=== PATIENT | female | born 1970 | race African-American/Black ===

== ENCOUNTER → 2016-06-17 | Outpatient (CLI) | payer OTHER ==
[~2016-06-17] MED LIST: CEPH-571 PO; CINN500T PO; DFL150 PO; METR500T PO; MULT-506 PO; OMEP40CA PO
--- NOTE | 2016-06-17 13:59 | MAMMOGRAPHY REPORT ---
BILATERAL DIGITAL DIAGNOSTIC MAMMOGRAM TOMOSYNTHESIS WITH CAD AND TARGETED RIGHT ULTRASOUND: 06/17/19 17 CLINICAL HISTORY: The patient reports nonfocal pain in her right outer breast last week, which has n ow resolved. No associated lump felt in this region by the patient. The patient does report an int ermittent lump in the right superior breast. TECHNIQUE: Breast tomosynthesis in addition to standard 2D mammography was performed. Current study was also evaluated with a Computer Aided Detection (CAD) system. Bilateral CC and MLO 2-D and jono synthesis images were obtained. COMPARISON: Comparison is made to exams dated: 11/14/2014 ultrasound, 11/14/2014 mammogram, 4 ultrasound, 05/29/2014 mammogram, 10/26/2013 mammogram, and 10/10/2012 mammogram - [facility]. BREAST COMPOSITION: There are scattered areas of fibroglandular density in both breasts. FINDINGS: There are no suspicious masses, calcifications, or areas of architectural distortion note d in either breast mammographically. There has been no significant interval change compared to prio r exams. Targeted ultrasound was performed of the area of the intermittent lump pointed out by the patient, i n the right breast at 12:00, approximately 20 cm from the nipple. Sonographically normal tissue is seen, without evidence of a mass or other suspicious sonographic abnormality. IMPRESSION: ACR BI-RADS CATEGORY 2: BENIGN, TARGETED ULTRASOUND ACR BI-RADS CATEGORY 2: BENIGN No suspicious abnormality in the right breast at the sites of right breast pain and intermittent rig ht breast lump. There is no mammographic or targeted sonographic evidence of malignancy. Recommend clinical follow-up for right breast pain and intermittent lump, and recommend routine bilateral scr eening mammograms in one year. The patient has been verbally notified of the results. Approximately 10% of breast cancers are not detected with mammography. A negative mammographic repor t should not delay biopsy if a clinically suggestive mass is present. Maxine Leija M.D. ah/:06/17/2016 10:32:44 Hall Worker: Jaki ROWLEY(Coleen)(Joselo), [facility] letter sent: Normal 06/08 BI-RADS Code: ACR BI-RADS Category 2: Benign Ultrasound BI-RADS: ACR BI-RADS Category 2: Benign
== END | disposition home or self-care (01) ==
LOC: C.MAMM 09:27
PROVIDERS: ATTEND Internal Medicine Geriatric Medicine
DX: N64.4 Mastodynia (principal); N63 Unspecified lump in breast

== ENCOUNTER → 2016-07-20 | Outpatient (CLI) | payer OTHER | END | disposition home or self-care (01) | LOC: C.PAPS 09:58 | PROVIDERS: ATTEND Obstetrics & Gynecology | DX: Z01.419 Encounter for gynecological examination (general) (routine) without abnormal findings (principal) ==

== ENCOUNTER → 2016-07-20 | Outpatient (CLI) | payer OTHER | END | disposition home or self-care (01) | LOC: C.LAB1850 13:43 | PROVIDERS: ATTEND Obstetrics & Gynecology | DX: Z20.2 Contact with and (suspected) exposure to infections with a predominantly sexual mode of transmission (principal) ==

== ENCOUNTER → 2016-07-20 | Outpatient (CLI) | payer OTHER ==
[2016-07-24 00:15] LABS: CHLAMYDIA TRACH RNA*** NOT DETECTED (NOT DETECTED); GC (NEIS GONORRHOEAE)RNA** NOT DETECTED (NOT DETECTED); TRICHOMONAS VAGINALIS RNA** NOT DETECTED (NOT DETECTED)
== END | disposition home or self-care (01) ==
LOC: C.LABSPEC 16:12
PROVIDERS: ATTEND Obstetrics & Gynecology
DX: Z20.2 Contact with and (suspected) exposure to infections with a predominantly sexual mode of transmission (principal)

== ENCOUNTER → 2016-08-14 | Outpatient (CLI) | payer OTHER | END | disposition home or self-care (01) | LOC: C.LABSPEC 13:15 | PROVIDERS: ATTEND Obstetrics & Gynecology | DX: B37.3 Candidiasis of vulva and vagina (principal) ==

== ENCOUNTER → 2016-09-23 | Outpatient (CLI) | payer OTHER ==
--- NOTE | 2016-09-23 10:24 | DIAGNOSTIC IMAGING REPORT ---
RIGHT KNEE 2 VIEWS CLINICAL HISTORY: Right knee pain. FINDINGS: AP and lateral views of the right knee are compared to study dated 08/31/2011. The skeletal structures are well mineralized. No fracture is seen. Mild narrowing is seen at the patellofemoral articulation. There is minimal degenerative beaking of the tibial spine, as well as tiny patellar enthesophytes. No joint effusion is identified. The overlying soft tissues are within normal limits. Superficial venous varicosities are incidentally noted around the knee. IMPRESSION: Minimal degenerative change as above. No acute bony abnormality is seen. Electronically signed by: Justus Saunders M.D. 09/23/2016 10:22 AM Dictated Date/Time: 09/23/2016 10:21 AM
--- NOTE | 2016-09-23 10:29 | DIAGNOSTIC IMAGING REPORT ---
LEFT KNEE 2 VIEWS HISTORY: M25.561 Knee pain, bilateral COMPARISON: None. FINDINGS: There is no fracture or dislocation. Superficial varicosities are noted. No significant knee effusion. Tiny marginal osteophytes. Subchondral sclerosis and cystic change at the patella consistent with degenerative change. IMPRESSION: Minimal degenerative changes as above. No acute bony abnormality. Electronically signed by: Neil Amador M.D. 09/23/2016 10:27 AM Dictated Date/Time: 09/23/2016 10:26 AM
== END | disposition home or self-care (01) ==
LOC: C.RADBC 09:56
PROVIDERS: ATTEND Family Medicine
DX: M25.561 Pain in right knee (principal); M25.562 Pain in left knee

== ENCOUNTER → 2016-10-21 | Outpatient (CLI) | payer OTHER | END | disposition home or self-care (01) | LOC: C.LABSPEC 15:09 | PROVIDERS: ATTEND Obstetrics & Gynecology | DX: N89.8 Other specified noninflammatory disorders of vagina (principal) ==

== ENCOUNTER 2016-12-06 12:32 | Emergency (ER) | payer OTHER ==
[~2016-12-06] VITALS: Ht 160 cm; Wt 120.0 kg
[~2016-12-06 12:32] MED LIST changes: -CEPH-571 PO; -CINN500T PO; -DFL150 PO; -METR500T PO; -MULT-506 PO
[2016-12-06 12:33] VITALS: TEMP 36.8; Ht 160 cm; Wt 120.0 kg
[2016-12-06 13:45] LABS: URINE APPEARANCE TURBID (CLEAR); URINE EPITHELIAL CELL AUTO >30 /lpf (0-5); URINE NITRITE NEG (NEG); URINE SPECIFIC GRAVITY 1.032 (1.000-1.030); UROBILINOGEN NEG (NEG); ZZUR CULT IF INDIC CLEAN CATCH YES
[2016-12-06 13:49] LABS: MANUAL MICROSCOPIC REQUIRED? NO; REVIEW REQ? YES; URINE BILIRUBIN 1+ (NEG); URINE COLOR AMBER
[2016-12-06] MEDS ORDERED: DFL150 PO (14:26)
[2016-12-06] MEDS ORDERED: MULT-506 PO (14:26)
[2016-12-06] MEDS ORDERED: CINN500T PO (14:26)
[2016-12-06] MEDS ORDERED: CEFTRIAXONE SOD 350MG/ML 1 GM VIAL IM STA (14:41)
[2016-12-06] MEDS ORDERED: AZITHROMYCIN 250 MG TAB PO ONE (14:45)
[2016-12-06] MEDS ORDERED: FLUCONAZOLE 50 MG TAB PO ONE (14:45)
--- NOTE | 2016-12-06 14:52 | EMERGENCY ROOM VISIT NOTE ---
History Report prepared by Reza: Alexandro Guillermo Under the Supervision of: Dr. Nelly Reid D.O. First contact with patient: 12:48 Chief Complaint: ABDOMINAL PAIN Stated Complaint: STOMACH PAIN Nursing Triage Summary: pt to the ED with c/o lower pelvic pain and dc was treated for yeast infection History of Present Illness The patient is a 46 year old female who presents to the Emergency Room with complaints of persistent vaginal itching beginning a few days ago. She states that she began treating herself for a yeast infection three days ago. She states that her yeast infection appears to have improved. The patient notes that she was recently on an antibiotic for an ingrown fingernail. She finished the antibiotic treatment this week and is now on Diflucan. She has a history of yeast infections with taking antibiotics. The patient also complains of lower abdominal pain. She denies any nausea, vomiting, chills, fevers, or diarrhea. She states that she has had some back pain, but has back pain occasionally and is unsure if it is related to her symptoms. The patient notes that she had unprotected intercourse with her boyfriend recently. She has no history of STI's , and does not believe that her partner has a history either. She denies any abnormal pain with intercourse. The patient has a history of a hysterectomy. She states that she began using [employer] Alanna wash last month, but otherwise denies any recent changes to her hygienic products. Source of History: patient Onset: A few days ago Position: other (vagina) Quality: other (itching) Timing: other (Persistent) Associated Symptoms: + abdominal pain (lower), No fevers, No nausea, No vomiting, No diarrhea Review of Systems See HPI for pertinent positives & negatives. A total of 10 systems reviewed and were otherwise negative. Past Medical & Surgical Medical Problems: (1) Dysmenorrhea (2) Fibroids (3) Morbid obesity Family History No pertinent family history stated. Social History Smoking Status: Former Smoker Occupation Status: employed Current/Historical Medications Scheduled Cephalexin (Keflex), 1 CAP PO BID Cinnamon (Cinnamon), 1 TAB PO DAILY Fluconazole (Fluconazole), 150 MG PO UD Metronidazole (Flagyl), 500 MG PO BID Multivitamin (Multivitamin), 1 TAB PO DAILY Allergies Coded Allergies: No Known Allergies (Verified , 09/18/15) Physical Exam Vital Signs Date Time Temp Pulse Resp B/P (MAP) Pulse Ox O2 Delivery O2 Flow Rate FiO2 12/06/16 15:10 64 18 138/91 100 Room Air 12/06/16 12:33 36.8 68 16 121/77 100 Physical Exam GENERAL: alert, well appearing, well nourished, no distress, non-toxic EYE EXAM: normal conjunctiva, PERRL and EOM's grossly intact OROPHARYNX: no exudate, no erythema, lips, buccal mucosa, and tongue normal and mucous membranes are moist NECK: supple, no nuchal rigidity, no adenopathy, non-tender LUNGS: Clear to auscultation. Normal chest wall mechanics HEART: no murmurs, S1 normal and S2 normal ABDOMEN: abdomen soft, non-tender, normo-active bowel sounds, no masses, no rebound or guarding. BACK: Back is symmetrical on inspection and there is no deformity, no midline tenderness, no CVA tenderness. : Normal external genitalia. No vesicles or lesions. No inguinal lymphadenopathy. Normal vaginal vault with a small amount of white discharge. Normal cervix. No signs of cervicitis. No CMT. Mild right adnexal tenderness. SKIN: no rashes and no bruising UPPER EXTREMITIES: upper extremities are grossly normal. LOWER EXTREMITIES: No pitting edema. NEURO EXAM: Normal sensorium, cranial nerves II-XII grossly intact, normal speech, no gross weakness of arms, no gross weakness of legs. Medical Decision & Procedures Laboratory Results Test 12/06/16 13:10 12/06/16 13:30 Urine Color ESTEVAN Urine Appearance TURBID (CLEAR) Urine pH 5.0 (4.5-7.5) Urine Specific [place] 1.032 (1.000-1.030) Urine Protein TRACE (NEG) Urine Glucose (UA) NEG (NEG) Urine Ketones TRACE (NEG) Urine Occult Blood TRACE (NEG) Urine Nitrite NEG (NEG) Urine Bilirubin 1+ (NEG) Urine Urobilinogen NEG (NEG) Urine Leukocyte Esterase TRACE (NEG) Urine WBC (Auto) 5-10 /hpf (0-5) Urine RBC (Auto) 0-4 /hpf (0-4) Urine Hyaline Casts (Auto) 1-5 /lpf (0-5) Urine Epithelial Cells (Auto) >30 /lpf (0-5) Urine Bacteria (Auto) 2+ (NEG) Urine Pathogenic Casts /lpf (0) Urine Yeast (Auto) (NONE PRSENT) Laboratory results per my review. Medications Administered Medications (Trade) Dose Ordered Sig/Hoda Route Start Time Stop Time Status Last Admin Dose Admin Ceftriaxone Sodium (Rocephin Im) 250 mg NOW STAT IM 12/06/16 14:41 12/06/16 14:43 DC 12/06/16 15:01 250 MG Azithromycin (Zithromax Tab) 1,000 mg NOW ONCE PO 12/06/16 14:45 12/06/16 14:46 DC 12/06/16 15:02 1,000 MG Fluconazole (Diflucan Tab) 150 mg NOW ONCE PO 12/06/16 14:45 12/06/16 14:46 DC 12/06/16 15:01 150 MG ED Course 1258: The patient was evaluated in room C4. A complete history and physical exam was performed. 1441: Ordered Rocephin 250 mg IM. 1437: Upon reevaluation, the patient is feeling better. I discussed the findings and the treatment plan with the patient. She verbalizes agreement and understanding. 1445: Ordered Diflucan Tab 150 mg PO, Zithromax Tab 1000 mg PO. The patient was discharged home. Medical Decision Differential diagnosis: Gonorrhea, chlamydia, yeast infection, BV, TOA, PID, UTI, as well as other etiologies were considered. Patient concerned about possible exposure to STD, as well as recent UTI symptoms. Swabs obtained during pelvic exam which patient tolerated well, low suspicion for ovarian cysts, TOA, PID, torsion. Symptoms are presentation not consistent with pyelonephritis, doubt bacteremia/sepsis, doubt other GI origin of patient's discomfort. Patient covered empirically at her request for GC and chlamydia, also discussed treatment of her urinary tract infection, as well as possible BV. Patient otherwise well-appearing, discussed follow-up with GENERAL OPHTHALMOLOGIST , symptoms to watch and return for, she verbalized understanding was agreeable with plan. Impression Primary Impression: Vaginal discharge Additional Impression: UTI (urinary tract infection) Scribe Attestation The scribe's documentation has been prepared under my direction and personally reviewed by me in its entirety. I confirm that the note above accurately reflects all work, treatment, procedures, and medical decision making performed by me. Departure Information Dispostion Home / Self-Care Prescriptions Metronidazole (FLAGYL) 500 Mg Tab 500 MG PO BID, #14 TAB Prov: Nelly Reid, DO 12/06/16 Cephalexin (KEFLEX) 500 Mg Cap 1 CAP PO BID for 7 Days, #14 CAP Prov: Nelly Reid, DO 12/06/16 Patient Instructions My [facility] Additional Instructions Please follow up with your family doctor or preferably your GENERAL OPHTHALMOLOGIST. Please take the antibiotics as prescribed. If the cultures are positive you'll receive a phone call in 48-72 hours. If you develop any increasing pain, worsening discharge, noticed blood in your urine, have vaginal bleeding, abdominal pain or back pain, fevers or chills, or you have any other new or concerning symptoms, please return the emergency room. Problem Qualifiers Additional Impression: UTI (urinary tract infection) Urinary tract infection type: acute cystitis Hematuria presence: without hematuria Qualified Codes: N30.00 - Acute cystitis without hematuria
[2016-12-06] MEDS ORDERED: CEPH-571 PO (14:53)
[2016-12-06] MEDS ORDERED: METR500T PO (14:54)
[2016-12-06 15:10] VITALS: BP 138/91; PULSE 64; O2SAT 100
[2016-12-09 21:32] LABS: CHLAMYDIA TRACH RNA*** NOT DETECTED (NOT DETECTED); GC (NEIS GONORRHOEAE)RNA** NOT DETECTED (NOT DETECTED)
== END 2016-12-06 15:12 | disposition home or self-care (01) ==
LOC: C.EDB 12:33 → C.EDC 15:12
DX: N89.8 Other specified noninflammatory disorders of vagina (principal); N39.0 Urinary tract infection, site not specified; Z87.42 Personal history of other diseases of the female genital tract; Z90.710 Acquired absence of both cervix and uterus; Z87.891 Personal history of nicotine dependence; Z79.899 Other long term (current) drug therapy

== ENCOUNTER → 2017-03-04 | Outpatient (CLI) | payer OTHER ==
[~2017-03-04] MED LIST changes: +CINN500T PO; +DFL150 PO; +MULT-506 PO; -OMEP40CA PO
[2017-03-04 10:37] LABS: URINE APPEARANCE CLEAR (CLEAR); URINE BILIRUBIN NEG (NEG); URINE COLOR YELLOW; URINE NITRITE NEG (NEG); URINE PH 6.5 (4.5-7.5); URINE SPECIFIC GRAVITY 1.018 (1.000-1.030); UROBILINOGEN NEG (NEG)
[2017-03-04 10:41] LABS: MANUAL MICROSCOPIC REQUIRED? NO; REVIEW REQ? NO
== END | disposition home or self-care (01) ==
LOC: C.LAB1850 09:55
PROVIDERS: ATTEND Physician Assistant
DX: R10.2 Pelvic and perineal pain (principal)

== ENCOUNTER → 2017-06-08 | Outpatient (CLI) | payer OTHER ==
[~2017-06-08] MED LIST changes: +AMOX1TAB42 PO; +HYDR-5688 PO; +LACTCAP3 PO; +MISCCAP80 PO; +ONDA8TAB62 SL; +PRLSR20 PO; +VITA400C28 PO
== END | disposition home or self-care (01) ==
LOC: C.LABSPEC 17:17
PROVIDERS: ATTEND Physician Assistant
DX: N89.8 Other specified noninflammatory disorders of vagina (principal); R10.2 Pelvic and perineal pain

== ENCOUNTER → 2017-06-09 | Outpatient (CLI) | payer OTHER ==
--- NOTE | 2017-06-09 10:19 | DIAGNOSTIC IMAGING REPORT ---
KUB CLINICAL HISTORY: R10.30 Abdominal pain, [id number] pain. Nephrocalcinosis. COMPARISON STUDY: 02/21/2013 FINDINGS: The soft tissues, psoas shadows, renal outlines and intestinal gas pattern appear normal. There is no evidence for bowel obstruction. No abnormal abdominal calcifications are seen. IMPRESSION: Normal study. The above report was generated using voice recognition software. It may contain grammatical, syntax or spelling errors. Electronically signed by: Girish Coker M.D. 06/09/2017 10:18 AM Dictated Date/Time: 06/09/2017 10:17 AM
== END | disposition home or self-care (01) ==
LOC: C.RADBC 10:00
PROVIDERS: ATTEND Nurse Practitioner Adult Health
DX: R10.30 Lower abdominal pain, unspecified (principal)

== ENCOUNTER → 2017-06-16 | Outpatient (CLI) | payer OTHER ==
[~2017-06-16] MED LIST changes: -AMOX1TAB42 PO; -HYDR-5688 PO; -LACTCAP3 PO; -MISCCAP80 PO; -ONDA8TAB62 SL; -PRLSR20 PO; -VITA400C28 PO
== END | disposition home or self-care (01) ==
LOC: C.LAB1850 09:50
PROVIDERS: ATTEND Nurse Practitioner Adult Health
DX: Z00.00 Encounter for general adult medical examination without abnormal findings (principal)

== ENCOUNTER → 2017-06-16 | Outpatient (CLI) | payer OTHER ==
--- NOTE | 2017-06-16 15:31 | MAMMOGRAPHY REPORT ---
BILATERAL DIGITAL DIAGNOSTIC MAMMOGRAM TOMOSYNTHESIS WITH CAD AND TARGETED BILATERAL ULTRASOUND: 06/16 CLINICAL HISTORY: Patient reports chronic nonfocal breast soreness and tenderness, that became worse approximately 2-3 weeks ago but now has subsided a bit. The patient reports her nipples are still te nder. Patient also reports a lump in the 12:00 far superior right breast. No skin erythema or nippl e discharge. TECHNIQUE: Bilateral breast tomosynthesis in addition to standard 2D mammography was performed. Curre nt study was also evaluated with a Computer Aided Detection (CAD) system. COMPARISON: Comparison is made to exams dated: 06/17/2016 ultrasound, 06/17/2016 mammogram, 11/14/2014 mammogram, 05/29/2014 mammogram, 10/26/2013 mammogram, and 10/10/2012 mammogram - [facility]. BREAST COMPOSITION: There are scattered areas of fibroglandular density in both breasts. FINDINGS: No suspicious mass, architectural distortion, developing asymmetry or cluster of microcalc ifications is seen in the breasts. Targeted ultrasound was performed in the periareolar and retroareolar aspect of each breast, given th e persistent nipple soreness. Sonographically normal tissue is seen without a discrete solid or cyst ic mass. No focal intraductal mass or focal skin thickening is appreciated. No drainable fluid justice ection. Additional targeted ultrasound was performed in the 12:00 right breast approximately 15 cm f rom the nipple in the area of lump pointed out by the patient. Sonographically normal tissue is seen without a suspicious solid or cystic mass. IMPRESSION: ACR BI-RADS CATEGORY 2: BENIGN, TARGETED ULTRASOUND ACR BI-RADS CATEGORY 2: BENIGN 1. No new suspicious mammographic or targeted sonographic abnormality to explain bilateral nonfocal mastalgia and bilateral nipple soreness. Therefore, continued clinical follow-up is recommended. 2. No suspicious mammographic or sonographic abnormality in the 12:00 right breast approximately 15 cm from the nipple in the area of lump pointed out by the patient. Clinical follow-up is therefore r ecommended, as biopsy of a clinically suspicious mass should not be precluded by negative imaging. Recommend routine screening tomosynthesis mammography in one year, unless there are any new areas of concern. These results and recommendations were discussed with the patient at the time of the exam. Approximately 10% of breast cancers are not detected with mammography. A negative mammographic report should not delay biopsy if a clinically suggestive mass is present. Celia Ross M.D. ay/:06/16/2017 10:53:40 Sourcing Coordinator: Frieda ROWLEY(R)(M), [facility] letter sent: Normal 1/2 BI-RADS Code: ACR BI-RADS Category 2: Benign Ultrasound BI-RADS: ACR BI-RADS Category 2: Benign
== END | disposition home or self-care (01) ==
LOC: C.MAMM 08:56
PROVIDERS: ATTEND Nurse Practitioner Adult Health
DX: N64.4 Mastodynia (principal)

== ENCOUNTER → 2017-08-03 | Outpatient (CLI) | payer OTHER | END | disposition home or self-care (01) | LOC: C.LAB1850 12:57 | PROVIDERS: ATTEND Obstetrics & Gynecology | DX: Z01.419 Encounter for gynecological examination (general) (routine) without abnormal findings (principal); Z20.2 Contact with and (suspected) exposure to infections with a predominantly sexual mode of transmission ==

== ENCOUNTER 2017-09-10 04:44 | Emergency (ER) | payer OTHER ==
[~2017-09-10] VITALS: Ht 160 cm; Wt 124.8 kg
[2017-09-10 04:50] VITALS: Ht 160 cm; Wt 124.8 kg
--- NOTE | 2017-09-10 05:15 | EMERGENCY ROOM VISIT NOTE ---
History Report prepared by Reza: Manuel Beatty Under the Supervision of: Dr. Nelly Reid D.O. First contact with patient: 04:58 Chief Complaint: CHEST PAIN Stated Complaint: PAIN IN CHEST History of Present Illness The patient is a 47 year old female who presents to the Emergency Room with complaints of constant chest pain since 0200 this morning. She states that she felt fine yesterday. She states that she woke up to get ready for work and then developed sharp chest pain. She notes the pain is worsened with right arm movement, but denies any pain radiating to her neck, back, or arms. She has a history of acid reflux, though denies any similar symptoms. She regularly takes Omezoprale. She notes that deep breaths slightly worsen the pain. She denies any dizziness, lightheadedness, shortness of breath, fevers, or chills. She notes that she lifts 50 pound boxes every day. She denies any changes to her daily activities. She notes that she has not been eating meat for the last four days. She has a family history of CAD. She notes her sister had an MD in her early 40s. She denies any cardiac problems. She denies any diarrhea or leg swelling. She reports recent travels [facility] a [facility] the past weekend. She denies any history of smoking. She has a history of sleep apnea. She reports taking daily vitamins. Source of History: patient Onset: since 0200 this morning Position: chest Quality: sharp Timing: constant Associated Symptoms: No fevers, No chills, No neck pain, No SOB, No back pain, No diarrhea Note: She denies any pain in her UE. She denies any dizziness, lightheadedness, or leg swelling. Review of Systems See HPI for pertinent positives & negatives. A total of 10 systems reviewed and were otherwise negative. Past Medical & Surgical Medical Problems: (1) Dysmenorrhea (2) Fibroids (3) Morbid obesity Family History Heart disease Social History Smoking Status: Never Smoker Smokeless Tobacco Use: No Occupation Status: employed Current/Historical Medications Scheduled Lactobacillus (Acidophilus), 1 CAP PO QAM Multivitamin (Multivitamin), 1 TAB PO DAILY Omeprazole (Prilosec), 20 MG PO BID Allergies Uncoded Allergies: POWDER IN LATEX GLOVES (Allergy, Mild, ITCHING, 09/10/17) Physical Exam Vital Signs Date Time Temp Pulse Resp B/P (MAP) Pulse Ox O2 Delivery O2 Flow Rate FiO2 09/10/17 09:10 64 16 118/69 97 09/10/17 08:45 62 09/10/17 08:36 36.7 72 16 113/77 98 Room Air 09/10/17 07:12 69 14 113/77 98 Room Air 09/10/17 06:15 72 20 127/94 96 Room Air 09/10/17 05:09 82 09/10/17 04:59 97 Room Air 09/10/17 04:50 36.7 67 20 139/87 97 Room Air Physical Exam GENERAL: alert, well appearing, well nourished, no distress, non-toxic EYE EXAM: normal conjunctiva, PERRL and EOM's grossly intact OROPHARYNX: no exudate, no erythema, lips, buccal mucosa, and tongue normal and mucous membranes are moist NECK: supple, no nuchal rigidity, no adenopathy, non-tender LUNGS: Clear to auscultation. Normal chest wall mechanics HEART: no murmurs, S1 normal and S2 normal CHEST: Slight reproducible chest pain along the right sternal border. ABDOMEN: abdomen soft, non-tender, normo-active bowel sounds, no masses, no rebound or guarding. BACK: Back is symmetrical on inspection and there is no deformity, no midline tenderness, no CVA tenderness. SKIN: no rashes and no bruising UPPER EXTREMITIES: upper extremities are grossly normal. LOWER EXTREMITIES: No pitting edema. NEURO EXAM: Normal sensorium, cranial nerves II-XII grossly intact, normal speech, no gross weakness of arms, no gross weakness of legs. Medical Decision & Procedures ER Provider Diagnostic Interpretation: X-ray: I interpreted the following studies. Chest: A two view study of the chest was reviewed and showed mild cardiomegaly, generous mediastinum, and poor inspiratory effort. It was negative for effusions and focal consolidation. Laboratory Results 09/10/17 05:11 Red Blood Count 3.96, Mean Corpuscular Volume 94.7, Mean Corpuscular Hemoglobin 31.6, Mean Corpuscular Hemoglobin Concent 33.3, Mean Platelet Volume 10.2, Neutrophils (%) (Auto) 47.9, Lymphocytes (%) (Auto) 44.8, Monocytes (%) (Auto) 5.8, Eosinophils (%) (Auto) 1.0, Basophils (%) (Auto) 0.3, Neutrophils # (Auto) 2.90, Lymphocytes # (Auto) 2.71, Monocytes # (Auto) 0.35, Eosinophils # (Auto) 0.06, Basophils # (Auto) 0.02 09/10/17 05:11 Test 09/10/17 05:11 09/10/17 08:04 White Blood Count 6.05 K/uL (4.8-10.8) Red Blood Count 3.96 M/uL (4.2-5.4) Hemoglobin 12.5 g/dL (12.0-16.0) Hematocrit 37.5 % (37-47) Mean Corpuscular Volume 94.7 fL (80-100) Mean Corpuscular Hemoglobin 31.6 pg (25-34) Mean Corpuscular Hemoglobin Concent 33.3 g/dl (32-36) Platelet Count 245 K/uL (130-400) Mean Platelet Volume 10.2 fL (7.4-10.4) Neutrophils (%) (Auto) 47.9 % Lymphocytes (%) (Auto) 44.8 % Monocytes (%) (Auto) 5.8 % Eosinophils (%) (Auto) 1.0 % Basophils (%) (Auto) 0.3 % Neutrophils # (Auto) 2.90 K/uL (1.4-6.5) Lymphocytes # (Auto) 2.71 K/uL (1.2-3.4) Monocytes # (Auto) 0.35 K/uL (0.11-0.59) Eosinophils # (Auto) 0.06 K/uL (0-0.5) Basophils # (Auto) 0.02 K/uL (0-0.2) RDW Standard Deviation 46.6 fL (36.4-46.3) RDW Coefficient of Variation 13.4 % (11.5-14.5) Immature Granulocyte % (Auto) 0.2 % Immature Granulocyte # (Auto) 0.01 K/uL (0.00-0.02) Prothrombin Time 10.7 SECONDS (9.0-12.0) Prothromb Time International Ratio 1.0 (0.9-1.1) D-Dimer 360 ug/L FEU (0-500) Anion Gap 4.0 mmol/L (3-11) Est Creatinine Clear Calc Drug Dose 148.0 ml/min Estimated GFR () 126.0 Estimated GFR (Non- 108.7 BUN/Creatinine Ratio 32.2 (10-20) Calcium Level 8.4 mg/dl (8.5-10.1) Total Bilirubin 0.7 mg/dl (0.2-1) Aspartate Amino Transf (AST/SGOT) 15 U/L (15-37) Alanine Aminotransferase (ALT/SGPT) 12 U/L (12-78) Alkaline Phosphatase 43 U/L (45-117) Pro-B-Type Natriuretic Peptide 49 pg/ml (0-450) Total Protein 7.1 gm/dl (6.4-8.2) Albumin 3.3 gm/dl (3.4-5.0) Globulin 3.8 gm/dl (2.5-4.0) Albumin/Globulin Ratio 0.9 (0.9-2) Lipase 142 U/L (73-393) Troponin I < 0.015 ng/ml (0-0.045) Laboratory results per my review. Medications Administered Medications (Trade) Dose Ordered Sig/Hoda Route Start Time Stop Time Status Last Admin Dose Admin Ketorolac Tromethamine (Toradol Inj) 30 mg NOW STAT IV 09/10/17 06:22 09/10/17 06:23 DC 09/10/17 06:40 30 MG ECG Per My Interpretation Indication: chest pain Rate (beats per minute): 62 Rhythm: normal sinus Findings: no acute ischemic change, no ectopy, other (Normal axis. Normal intervals.) ED Course 0500: The patient was evaluated in room B11B. A complete history and physical exam was performed. 0619: I reassessed the patient at this time. She states there is no change in her pain. 0622: Ordered Toradol 30 mg IV 0813: Patient states slight improvement in pain however still present. Second troponin pending. 0845: Patient resting and noted improvement in pain. Vital signs stable. Updated on negative second troponin. Advise close follow-up with family doctor and possible need for additional cardiology evaluation given family history. Patient with minimal personal risk factors for ACS/CAD. Discussed with patient symptoms to watch and return for, she verbalized understanding was agreeable with plan. Medical Decision Prior records/ancillary studies reviewed. Triage Nursing notes reviewed. The patient's history was concerning for chest pain. Differential diagnosis: Etiologies such as cardiac ischemia, aortic dissection, pulmonary embolism, pneumonia, pneumothorax, musculoskeletal, infections, pericarditis, myocarditis , esophageal rupture, gastrointestinal, as well as others were entertained. Heart score 1 Pt well appearing here despite complaints. Pt with minimal cardiac risk factors , but strong family history. Pt with no obvious alternative etiology for pain. 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 I do not suspect PE, dissection, aaa, perf, gi bleed, occult infectious etiology. Pt well appearing throughout. VS stable. Pt tolerated sips of po. [place] improved with meds here. Discussed close f/u with PCP and possible need for cardiology evaluation. Discussed sx to watch/return for, she verbalized understanding and was agreeable with plan. Medication Reconcilliation Current Medication List: was personally reviewed by me Blood Pressure Screening Patient's blood pressure: Elevated blood pressure Blood pressure disposition: Elevated BP felt to be situational Impression Primary Impression: Chest pain Additional Impression: Morbid obesity Scribe Attestation The scribe's documentation has been prepared under my direction and personally reviewed by me in its entirety. I confirm that the note above accurately reflects all work, treatment, procedures, and medical decision making performed by me. Departure Information Dispostion Home / Self-Care Referrals No Doctor, Assigned (PCP) Patient Instructions My [facility] Additional Instructions Please call and follow-up with your family doctor as a precaution. Please discuss with them your family history as he may require additional outpatient cardiac testing such as a stress test or an echo. Please avoid any strenuous activity or heavy lifting until you are feeling better. Please continue to monitor for any other changing symptoms. If you have any recurrent or worsening chest pain, develop trouble breathing, dizziness/lightheadedness, nausea or vomiting, fevers, worsening cough, swelling of the legs, you have any other new concerns, please return the emergency room. Problem Qualifiers Primary Impression: Chest pain Chest pain type: unspecified Qualified Codes: R07.9 - Chest pain, unspecified
[2017-09-10 05:20] LABS: BASO % 0.3 %; BASO ABS # 0.02 K/uL (0-0.2); EOS ABS # 0.06 K/uL (0-0.5); HEMATOCRIT 37.5 % (37-47); HEMOGLOBIN 12.5 g/dL (12.0-16.0); IG# 0.01 K/uL (0.00-0.02); LYMPH % 44.8 %; LYMPH ABS # 2.71 K/uL (1.2-3.4); MEAN CELL VOLUME 94.7 fL (80-100); MEAN CORPUSCULAR HEMOGLOBIN 31.6 pg (25-34); MEAN CORPUSCULAR HGB CONC 33.3 g/dl (32-36); MEAN PLATELET VOLUME 10.2 fL (7.4-10.4); MONO % 5.8 %; MONO ABS # 0.35 K/uL (0.11-0.59); NEUT % 47.9 %; PLATELET COUNT 245 K/uL (130-400); RED CELL DISTRIBUTION WIDTH CV 13.4 % (11.5-14.5); RED CELL DISTRIBUTION WIDTH SD 46.6 fL (36.4-46.3); WHITE BLOOD COUNT 6.05 K/uL (4.8-10.8)
[2017-09-10 05:42] LABS: ALBUMIN 3.3 gm/dl (3.4-5.0); ALT/SGPT 12 U/L (12-78); AST/SGOT 15 U/L (15-37); BLOOD UREA NITROGEN 20 mg/dl (7-18); CALCIUM 8.4 mg/dl (8.5-10.1); CARBON DIOXIDE 29 mmol/L (21-32); CREATININE 0.61 mg/dl (0.60-1.20); GLUCOSE 81 mg/dl (70-99); LIPASE 142 U/L (73-393); POTASSIUM 3.7 mmol/L (3.5-5.1); SODIUM 138 mmol/L (136-145)
[2017-09-10 05:47] LABS: ALKALINE PHOSPHATASE 43 U/L (45-117); TOTAL PROTEIN 7.1 gm/dl (6.4-8.2)
[2017-09-10] MEDS ORDERED: PRLSR20 PO (05:52)
[2017-09-10] MEDS ORDERED: LACTCAP3 PO (05:53)
[2017-09-10] MEDS ORDERED: KETOROLAC TROMETHAMINE 30 MG/ML VIAL IV STA (06:22)
--- NOTE | 2017-09-10 07:16 | DIAGNOSTIC IMAGING REPORT ---
SINGLE VIEW CHEST CLINICAL HISTORY: Atypical chest pain. FINDINGS: An AP, portable, upright chest radiograph is compared to study dated 02/21/2013. The examination is degraded by portable technique and large body habitus. The cardiomediastinal silhouette is unremarkable. There are low lung volumes with bibasilar atelectasis. The lungs and pleural spaces are otherwise clear. No pneumothorax is seen. The bony thorax is grossly intact. IMPRESSION: Low lung volumes with no active disease in the chest. Electronically signed by: Justus Saunders M.D. 09/10/2017 7:15 AM Dictated Date/Time: 09/10/2017 7:14 AM
[2017-09-10] MEDS ORDERED: ACETAMINOPHEN 500 MG TAB PO STA (08:13)
[2017-09-10 08:36] VITALS: TEMP 36.7
[2017-09-10 09:10] VITALS: BP 118/69; PULSE 64; O2SAT 97
== END 2017-09-10 09:12 | disposition home or self-care (01) ==
LOC: C.EDB 04:45
DX: R07.9 Chest pain, unspecified (principal); E66.01 Morbid (severe) obesity due to excess calories; Z68.42 Body mass index [BMI] 45.0-49.9, adult; K21.9 Gastro-esophageal reflux disease without esophagitis; Z79.899 Other long term (current) drug therapy; Z82.49 Family history of ischemic heart disease and other diseases of the circulatory system; G47.30 Sleep apnea, unspecified; Z91.048 Other nonmedicinal substance allergy status